=== PATIENT | female | born 1970 | race Caucasian/White ===

== ENCOUNTER 2019-04-27 19:18 | Emergency (ER) | payer OTHER ==
--- NOTE | 2019-04-27 19:20 | ERPHSYRPT ---
- History of Present Illness Time Seen by Provider: 04/27/19 19:20 Historian: patient, family Exam Limitations: no limitations Physician History: 49 y/o white female presents with recurrent prolapsed uterus. pt states her uterus prolapses after each urination and defecation. usually spontaneously reduces. pt states this evening unable to reduce and there is some discomfort. pt does not have a telegraph office manager. denies abd pain. Timing/Duration: today Activities at Onset: none Quality: cramping (mild) Pain Radiation: no radiation Severity of Pain-Max: mild Severity of Pain-Current: mild Modifying Factors: Improves With: nothing Associated Symptoms: denies symptoms Previous symptoms: same symptoms as today Allergies/Adverse Reactions: No Known Drug Allergies Allergy (Verified 04/27/19 19:45) Home Medications: Paroxetine HCl [Paxil] 20 mg PO DAILY 02/25/14 [History] Clonazepam 0.5 mg [Klonopin 0.5 MG] 0.5 mg PO BID PRN 04/27/19 [History] Hx Tetanus, Diphtheria Vaccination/Date Given: Yes Hx Influenza Vaccination/Date Given: No Hx Pneumococcal Vaccination/Date Given: No - Review of Systems Constitutional: No Symptoms Eyes: No Symptoms Ears, Nose, & Throat: No Symptoms Respiratory: No Symptoms Cardiac: No Symptoms Abdominal/Gastrointestinal: No Symptoms Genitourinary Symptoms: Other (uterine prolapse) Musculoskeletal: No Symptoms Skin: No Symptoms Neurological: No Symptoms Psychological: No Symptoms Endocrine: No Symptoms Hematologic/Lymphatic: No Symptoms Immunological/Allergic: No Symptoms All Other Systems: Reviewed and Negative - Past Medical History Pertinent Past Medical History: Yes Neurological History: No Pertinent History ENT History: No Pertinent History Cardiac History: No Pertinent History Respiratory History: No Pertinent History Endocrine Medical History: No Pertinent History Musculoskeletal History: No Pertinent History GI Medical History: Hemorrhoids History: No Pertinent History Psycho-Social History: Depression Female Reproductive Disorders: No Pertinent History - Past Surgical History Past Surgical History: Yes Neuro Surgical History: No Pertinent History Cardiac: No Pertinent History Respiratory: No Pertinent History Gastrointestinal: No Pertinent History, Other Genitourinary: Kidney Surgery Musculoskeletal: Orthopedic Surgery Female Surgical History: Tubal Ligation Other Surgical History: right ankle pinning. HEMMORHOID REMOVAL FEBRUARY THIS YEAR. RIGHT KIDNEY REMOVAL IN 1996 - Social History Smoking Status: Never smoker Exposure to second hand smoke: Yes Drug Use: none Patient Lives Alone: No - Nursing Vital Signs Nursing Vital Signs: Initial Vital Signs Temperature 98.1 F 04/27/19 19:30 Pulse Rate 86 04/27/19 19:30 Respiratory Rate 18 04/27/19 19:30 Blood Pressure 148/101 04/27/19 19:30 O2 Sat by Pulse Oximetry 99 04/27/19 19:30 Pain Scale Pain Intensity 10 - Physical Exam General Appearance: mild distress, alert, anxiety Eye Exam: PERRL/EOMI, post op pupil defect (L) Ears, Nose, Throat Exam: normal ENT inspection, moist mucous membranes Neck Exam: normal inspection, non-tender, supple, full range of motion Respiratory Exam: normal breath sounds, lungs clear, airway intact, No chest tenderness, No respiratory distress Cardiovascular Exam: regular rate/rhythm, normal heart sounds, normal peripheral pulses Gastrointestinal/Abdomen Exam: soft, normal bowel sounds, No tenderness Pelvic Exam: other (uterine prolapse. no bleeding) Rectal Exam: not done Back Exam: normal inspection, normal range of motion, No CVA tenderness, No vertebral tenderness Extremity Exam: normal inspection, normal range of motion, pelvis stable Neurologic Exam: alert, oriented x 3, cooperative, surveillance specialist II-XII nml as tested Skin Exam: normal color, warm Lymphatic Exam: No adenopathy SpO2 Interpretation: normal O2 Delivery: Room Air - Course Nursing assessment & vital signs reviewed: Yes Ordered Tests: Active Orders 24 hr Category Date Time Status IV Insertion STAT Care 04/27/19 19:39 Active AMYLASE Stat Lab 04/27/19 19:30 Completed CBC W DIFF Stat Lab 04/27/19 19:30 Completed CMP Stat Lab 04/27/19 19:30 Completed LIPASE Stat Lab 04/27/19 19:30 Completed Lactic Acid Stat Lab 04/27/19 20:09 Completed Medication Summary Discontinued Medications Generic Name Dose Route Start Last Admin Trade Name Freq PRN Reason Stop Dose Admin Hydromorphone HCl 1 mg 04/27/19 20:09 04/27/19 20:34 Hydromorphone 1 Mg/Ml Ampule IV 04/27/19 20:10 1 mg STAT ONE Administration Hydromorphone HCl Confirm 04/27/19 20:15 Hydromorphone 1 Mg/Ml Ampule Administered 04/27/19 20:16 Dose 1 mg .ROUTE .STK-MED ONE Sodium Chloride 1,000 mls @ 999 mls/hr 04/27/19 20:09 04/27/19 20:33 Sodium Chloride 0.9% 1000 Ml IV 04/27/19 21:09 999 mls/hr .Q1H1M STA Administration Sodium Chloride Confirm 04/27/19 20:16 Sodium Chloride 0.9% 1000 Ml Administered 04/27/19 20:17 Dose 1,000 mls @ ud .ROUTE .STK-MED ONE Ondansetron HCl 4 mg 04/27/19 20:09 04/27/19 20:34 Zofran 4 Mg/2 Ml Vial IV 04/27/19 20:10 4 mg STAT ONE Administration Ondansetron HCl Confirm 04/27/19 20:15 Zofran 4 Mg/2 Ml Vial Administered 04/27/19 20:16 Dose 4 mg .ROUTE .STK-MED ONE Lab/Rad Data: Laboratory Result Diagrams 04/27/19 19:30 04/27/19 19:30 Laboratory Results 04/27/19 04/27/19 04/27/19 Range/Units 20:09 19:30 19:30 WBC 7.8 (4.0-10.5) K/mm3 RBC 4.30 (4.1-5.4) M/mm3 Hgb 13.4 (12.0-16.0) gm/dl Hct 41.2 (35-47) % MCV 95.8 (78-100) fl MCH 31.2 (26-32) pg MCHC 32.5 (32-36) g/dl RDW 13.5 (11.5-14.0) % Plt Count 186 (150-450) K/mm3 MPV 11.0 H (6-9.5) fl Gran % 48.2 (36.0-66.0) % Eos # (Auto) 0.16 (0-0.5) Absolute Lymphs (auto) 3.20 (1.0-4.6) Absolute Monos (auto) 0.65 (0.0-1.3) Lymphocytes % 41.0 (24.0-44.0) % Monocytes % 8.3 (0.0-12.0) % Eosinophils % 2.0 (0.00-5.0) % Basophils % 0.5 (0.0-0.4) % Absolute Granulocytes 3.76 (1.4-6.9) Basophils # 0.04 (0-0.4) Sodium 137 (137-145) mmol/L Potassium 3.6 (3.5-5.1) mmol/L Chloride 105 (98-107) mmol/L Carbon Dioxide 28 (22-30) mmol/L Anion Gap 8.5 (5-15) MEQ/L BUN 12 (7-17) mg/dL Creatinine 0.90 (0.52-1.04) mg/dL Estimated GFR > 60.0 ML/MIN Glucose 96 (74-106) mg/dL Lactic Acid 1.2 (0.4-2.0) Calcium 9.4 (8.4-10.2) mg/dL Total Bilirubin 0.70 (0.2-1.3) mg/dL AST 29 (14-36) U/L ALT 11 (0-35) U/L Alkaline Phosphatase 63 (38-126) U/L Serum Total Protein 7.2 (6.3-8.2) g/dL Albumin 4.0 (3.5-5.0) g/dL Amylase 94 (30-110) U/L Lipase 183 (23-300) U/L - Progress Progress: improved Progress Note: 04/27/19 21:20 i contacted our hospital telegraph office manager dr. trotter. he states no need for ct abd/ pelvis and may just reduce the prolapse. if pt with sig pain, may need ct. pt had been in a trendelenburg position and given iv dilaudid and zofran. upon return to pt 30 to 40 minutes later, uterine prolapse, spontaneously and completely reduced. pt denies pain of any kind. pt is to call his office on saturday05/04/19. Discussed with : Tristin Counseled pt/family regarding: diagnosis, need for follow-up, rad results - Departure Departure Disposition: Home Clinical Impression: Uterine prolapse Condition: Stable Critical Care Time: No Referrals: MIRTHA GAGE NP [Primary Care Provider] - BERNABE TROTTER DO [ACTIVE STAFF] - Additional Instructions: call dr. Trotter office at [phone] on Saturday05/04/19 to arrange appointment. bedrest as much as possible over next 7 day. return to ED of unable to reduce prolapse on your own.
[2019-04-27] MEDS ORDERED: Sodium Chloride 0.9% 1000 ML 1,000 ML IV STA (20:09)
[2019-04-27] MEDS ORDERED: Hydromorphone 1 mg/ml Ampule IV ONE (20:09)
[2019-04-27] MEDS ORDERED: Zofran 4 MG/2 ML VIAL IV ONE (20:09)
[2019-04-27] MEDS ORDERED: Zofran 4 MG/2 ML VIAL ONE (20:15)
[2019-04-27] MEDS ORDERED: Hydromorphone 1 mg/ml Ampule ONE (20:15)
[2019-04-27] MEDS ORDERED: Sodium Chloride 0.9% 1000 ML 1,000 ML ONE (20:16)
[2019-04-27 20:26] LABS: Absolute Neutrophil Ct (ANC) 3.76 (1.4-6.9); BASOPHIL % 0.5 % (0.0-0.4); Basophil (Absolute #) 0.04 (0-0.4); Eosinophil (Absolute #) 0.16 (0-0.5); Hematocrit 41.2 % (35-47); Hemoglobin 13.4 gm/dl (12.0-16.0); Mean Cell Volume 95.8 fl (78-100); Mean Corpuscular Hemoglobin 31.2 pg (26-32); Mean Corpuscular Hgb Concent. 32.5 g/dl (32-36); Monocyte (Absolute #) 0.65 (0.0-1.3); Monocytes % 8.3 % (0.0-12.0); Neutrophil % 48.2 % (36.0-66.0); Platelet Count 186 K/mm3 (150-450); Red Cell Distribution Width 13.5 % (11.5-14.0); White Blood Count 7.8 K/mm3 (4.0-10.5)
[2019-04-27 20:45] LABS: ALKALINE PHOSPHATASE 63 U/L (38-126); AMYLASE 94 U/L (30-110); ANION GAP 8.5 MEQ/L (5-15); BLOOD UREA NITROGEN 12 mg/dL (7-17); CHLORIDE 105 mmol/L (98-107); Calcium 9.4 mg/dL (8.4-10.2); Carbon Dioxide 28 mmol/L (22-30); Glucose 96 mg/dL (74-106); LIPASE 183 U/L (23-300); Potassium 3.6 mmol/L (3.5-5.1); SGOT/AST 29 U/L (14-36); SGPT/ALT 11 U/L (0-35); SODIUM 137 mmol/L (137-145); Total Protein 7.2 g/dL (6.3-8.2)
[2019-04-27 21:33] VITALS: BP 127/92; PULSE 68; O2SAT 97
== END 2019-04-27 21:40 | disposition home or self-care (01) ==
LOC: ED 19:18
DX: N81.4 Uterovaginal prolapse, unspecified (principal)
CPT/HCPCS: 36000; 36415; 80053; 82150; 83605; 83690; 85025; 96374; 96375; 99284; J1170; J2405

== ENCOUNTER 2019-06-02 07:55 | Inpatient (IN) | payer OTHER ==
[~2019-06-02 07:55] MED LIST: Lactated Ringers 1,000 ML IV ONE
[2019-06-02] MEDS ORDERED: Lactated Ringers 1,000 ML IV ONE ×3 (08:35→13:00)
[2019-06-02] MEDS ORDERED: KEFZOL 1 GM/50 ML PREMIX** 1 GM/50 ML IVPB IV ONE (08:35)
[2019-06-02] MEDS ORDERED: KEFZOL 1 GM/50 ML PREMIX** 1 GM/50 ML IVPB IV SCH ×2 (08:45→19:00)
[2019-06-02] MEDS ORDERED: Lactated Ringers 1,000 ML IV SCH (09:00)
[2019-06-02 09:09] LABS: ALBUMIN 3.9 g/dL (3.5-5.0); ALKALINE PHOSPHATASE 68 U/L (38-126); ANION GAP 10.1 MEQ/L (5-15); BLOOD UREA NITROGEN 21 mg/dL (7-17); CHLORIDE 109 mmol/L (98-107); Calcium 9.2 mg/dL (8.4-10.2); Carbon Dioxide 28 mmol/L (22-30); Creatinine 1 0.71 mg/dL (0.52-1.04); Glucose 100 mg/dL (74-106); Potassium 3.7 mmol/L (3.5-5.1); SGOT/AST 22 U/L (14-36); SGPT/ALT 11 U/L (0-35); SODIUM 143 mmol/L (137-145)
[2019-06-02] MEDS ORDERED: PITRESSIN 20 UNITS*** 20 UNIT in Sodium Chloride 0.9% 100 ML IVPB 100 ML IV SCH (09:30)
[2019-06-02 09:31] LABS: ABO TYPING O
[2019-06-02 09:32] LABS: Antibody Screen NEGATIVE (NEGATIVE); RH TYPING POSITIVE
[2019-06-02] MEDS ORDERED: Zemuron 100 MG/10 ML ONE (10:41)
[2019-06-02] MEDS ORDERED: SUBLIMAZE 100 MCG/2 ML ONE (10:41)
[2019-06-02] MEDS ORDERED: Quelicin Fliptop 200 MG/10 ML ONE (10:41)
[2019-06-02] MEDS ORDERED: DIPRIVAN 200 MG/20 ML IV ONE (10:41)
[2019-06-02] MEDS ORDERED: Zofran 4 MG/2 ML VIAL ONE (11:58)
[2019-06-02] MEDS ORDERED: Decadron 4 MG INJ ONE (11:58)
[2019-06-02] MEDS ORDERED: TORAdol 30 mg Injection ONE ×2 (11:58→13:04)
[2019-06-02] MEDS ORDERED: BRIDION 200MG/2ML IV ONE (12:38)
[2019-06-02] MEDS ORDERED: DILAUDID 2 MG INJECTION ONE (12:55)
[2019-06-02] MEDS ORDERED: Phenergan 25 MG INJ ONE (13:08)
[2019-06-02] MEDS ORDERED: Oxy-IR 5 MG PO PRN (14:14)
[2019-06-02 14:48] LABS: Appearance CLEAR (CLEAR); Bilirubin NEGATIVE (NEGATIVE); Blood NEGATIVE Ery/ul (0-5); Glucose NEGATIVE (NEGATIVE); Ketones NEGATIVE (NEGATIVE); Leukocyte Esterase NEGATIVE (NEGATIVE); Nitrite NEGATIVE (NEGATIVE); Protein,Urine Dip NEGATIVE (Negative); Specific Gravity 1.014 (1.005-1.025); Urobilinogen NEGATIVE mg/dL (0-1); WBC 0-2 /HPF (0-5)
[2019-06-02] MEDS ORDERED: Klonopin 0.5 MG PO PRN (15:00)
[2019-06-02] MEDS: TYLENOL EXTRA STRENGTH 500 MG PO SCH ×2 (15:29→20:36)
[2019-06-02] MEDS: TORAdol 30 mg Injection IV SCH (17:19)
[2019-06-02] MEDS: Zofran 4 MG/2 ML VIAL IV SCH (17:19)
[2019-06-02] MEDS: Lactated Ringers 1,000 ML IV SCH (17:21)
[2019-06-02] MEDS: Oxy-IR 5 MG PO PRN (18:11)
[2019-06-02 18:37] LABS: Hematocrit 38.5 % (35-47); Hemoglobin 12.7 gm/dl (12.0-16.0); Mean Corpuscular Hemoglobin 32.3 pg (26-32); Mean Platelet Volume 9.8 fl (7.5-11.0); Platelet Count 199 K/mm3 (150-450); Red Blood Count 3.93 M/mm3 (4.1-5.4); Red Cell Distribution Width 13.8 % (11.5-14.0); White Blood Count 11.7 K/mm3 (4.0-10.5)
[2019-06-02] MEDS ORDERED: Paxil 20 MG ONE (19:02)
[2019-06-02] MEDS: Paxil 20 MG PO SCH (19:03)
[2019-06-02] MEDS ORDERED: SENOKOT 8.6 MG PO SCH (20:00)
[2019-06-02] MEDS: DILAUDID 2 MG INJECTION IV PRN ×2 (20:32→20:56)
[2019-06-02] MEDS: Colace 100 MG PO SCH (22:11)
[2019-06-03] MEDS: TORAdol 30 mg Injection IV SCH ×2 (00:12→05:09)
[2019-06-03] MEDS: Zofran 4 MG/2 ML VIAL IV SCH ×2 (00:12→05:09)
[2019-06-03] MEDS: Lactated Ringers 1,000 ML IV SCH (00:13)
[2019-06-03] MEDS: Oxy-IR 5 MG PO PRN ×2 (00:30→05:28)
[2019-06-03] MEDS: TYLENOL EXTRA STRENGTH 500 MG PO SCH ×2 (02:54→10:02)
[2019-06-03 04:14] VITALS: PULSE 73
[2019-06-03 05:06] LABS: Hematocrit 34.8 % (35-47); Hemoglobin 11.4 gm/dl (12.0-16.0); Mean Cell Volume 99.1 fl (78-100); Mean Corpuscular Hemoglobin 32.5 pg (26-32); Mean Corpuscular Hgb Concent. 32.8 g/dl (32-36); Platelet Count 211 K/mm3 (150-450); Red Blood Count 3.51 M/mm3 (4.1-5.4); White Blood Count 10.2 K/mm3 (4.0-10.5)
[2019-06-03 05:22] LABS: ALKALINE PHOSPHATASE 58 U/L (38-126); ANION GAP 4.7 MEQ/L (5-15); BLOOD UREA NITROGEN 15 mg/dL (7-17); CHLORIDE 107 mmol/L (98-107); Calcium 8.3 mg/dL (8.4-10.2); Carbon Dioxide 31 mmol/L (22-30); Creatinine 1 0.79 mg/dL (0.52-1.04); Glucose 97 mg/dL (74-106); Potassium 3.9 mmol/L (3.5-5.1); SGOT/AST 20 U/L (14-36); SGPT/ALT 10 U/L (0-35); SODIUM 139 mmol/L (137-145); Total Protein 5.5 g/dL (6.3-8.2)
[2019-06-03 07:24] VITALS: BP 109/63; O2SAT 91
--- NOTE | 2019-06-03 08:09 | PCM.DS ---
Discharge Summary Date of Admission: 06/02/19 07:55 Date of Discharge: 06/03/19 Admitting Physician: BERNABE RAMIREZ DO Consults: PT ADMITTED YESTERDAY SP UNDERGOING VAGINAL HYSTERECTOMY WITH ANTERIOR REPAIR FOR SYMPTOMATIC UTERINE PROLAPSE AND CYSTOCELE. PT DURING POSTOP PERIOD DID VERY WELL ABLE TO AMBULATE AND TOLERATE DIET WITH ADEQUATE URINE OUTPUT. PT AT THIS TIME STABLE FOR DISCHARGE AND WAS GIVEN PERCOCET AND IBUPROFEN FOR PAIN MANAGEMENT. PT INSTRUCTED TO FU IN OFFICE IN 2 WKS. Primary Care Provider: MIRTHA GAGE Allergies Allergies No Known Drug Allergies Allergy (Verified 06/02/19 08:50) Hospital Summary - Vitals & Intake/Output Vital Signs: Vital Signs Temperature 98.5 F 06/03/19 07:23 Pulse Rate 73 06/03/19 07:23 Respiratory Rate 16 06/03/19 07:23 Blood Pressure 109/63 06/03/19 07:23 O2 Sat by Pulse Oximetry 91 L 06/03/19 07:23 Intake & Output: Intake & Output 05/31/19 06/01/19 06/02/19 06/03/19 11:59 11:59 11:59 11:59 Intake Total 2428 Output Total 1400 Balance 1028 Weight 59.9 kg 59.9 kg - Lab Result Diagrams: 06/03/19 04:48 06/03/19 04:48 Lab Results-Last 24 Hrs: Lab Results-Last 24 Hours 06/02/19 06/02/19 06/02/19 Range/Units 08:50 08:50 08:50 WBC (4.0-10.5) K/mm3 RBC (4.1-5.4) M/mm3 Hgb (12.0-16.0) gm/dl Hct (35-47) % MCV (78-100) fl MCH (26-32) pg MCHC (32-36) g/dl RDW (11.5-14.0) % Plt Count (150-450) K/mm3 MPV (7.5-11.0) fl Sodium 143 (137-145) mmol/L Potassium 3.7 (3.5-5.1) mmol/L Chloride 109 H (98-107) mmol/L Carbon Dioxide 28 (22-30) mmol/L Anion Gap 10.1 (5-15) MEQ/L BUN 21 H (7-17) mg/dL Creatinine 0.71 (0.52-1.04) mg/dL Estimated GFR > 60.0 ML/MIN Glucose 100 (74-106) mg/dL Calcium 9.2 (8.4-10.2) mg/dL Total Bilirubin 0.90 (0.2-1.3) mg/dL AST 22 (14-36) U/L ALT 11 (0-35) U/L Alkaline Phosphatase 68 (38-126) U/L Serum Total Protein 7.0 (6.3-8.2) g/dL Albumin 3.9 (3.5-5.0) g/dL Urine Color (YELLOW) Urine Appearance (CLEAR) Urine pH (5-6) Ur Specific [place] (1.005-1.025) Urine Protein (Negative) Urine Ketones (NEGATIVE) Urine Blood (0-5) Paras/ul Urine Nitrite (NEGATIVE) Urine Bilirubin (NEGATIVE) Urine Urobilinogen (0-1) mg/dL Ur Leukocyte Esterase (NEGATIVE) Urine WBC (Auto) (0-5) /HPF Urine RBC (Auto) (0-2) /HPF U Epithel Cells (Auto) (FEW) /HPF Urine Bacteria (Auto) (NEGATIVE) /HPF Urine Glucose (NEGATIVE) mg/dL Urine HCG, Qual NEGATIVE (Negative) ABO Group O Rh Factor POSITIVE Antibody Screen NEGATIVE (NEGATIVE) 06/02/19 06/02/19 06/03/19 Range/Units 11:21 18:34 04:48 WBC 11.7 H 10.2 (4.0-10.5) K/mm3 RBC 3.93 L 3.51 L (4.1-5.4) M/mm3 Hgb 12.7 11.4 L (12.0-16.0) gm/dl Hct 38.5 34.8 L (35-47) % MCV 98.0 99.1 (78-100) fl MCH 32.3 H 32.5 H (26-32) pg MCHC 33.0 32.8 (32-36) g/dl RDW 13.8 14.0 (11.5-14.0) % Plt Count 199 211 (150-450) K/mm3 MPV 9.8 10.0 (7.5-11.0) fl Sodium (137-145) mmol/L Potassium (3.5-5.1) mmol/L Chloride (98-107) mmol/L Carbon Dioxide (22-30) mmol/L Anion Gap (5-15) MEQ/L BUN (7-17) mg/dL Creatinine (0.52-1.04) mg/dL Estimated GFR ML/MIN Glucose (74-106) mg/dL Calcium (8.4-10.2) mg/dL Total Bilirubin (0.2-1.3) mg/dL AST (14-36) U/L ALT (0-35) U/L Alkaline Phosphatase (38-126) U/L Serum Total Protein (6.3-8.2) g/dL Albumin (3.5-5.0) g/dL Urine Color YELLOW (YELLOW) Urine Appearance CLEAR (CLEAR) Urine pH 7.0 (5-6) Ur Specific [place] 1.014 (1.005-1.025) Urine Protein NEGATIVE (Negative) Urine Ketones NEGATIVE (NEGATIVE) Urine Blood NEGATIVE (0-5) Paras/ul Urine Nitrite NEGATIVE (NEGATIVE) Urine Bilirubin NEGATIVE (NEGATIVE) Urine Urobilinogen NEGATIVE (0-1) mg/dL Ur Leukocyte Esterase NEGATIVE (NEGATIVE) Urine WBC (Auto) 0-2 (0-5) /HPF Urine RBC (Auto) 6-10 (0-2) /HPF U Epithel Cells (Auto) NONE (FEW) /HPF Urine Bacteria (Auto) NONE (NEGATIVE) /HPF Urine Glucose NEGATIVE (NEGATIVE) mg/dL Urine HCG, Qual (Negative) ABO Group Rh Factor Antibody Screen (NEGATIVE) 06/03/19 Range/Units 04:48 WBC (4.0-10.5) K/mm3 RBC (4.1-5.4) M/mm3 Hgb (12.0-16.0) gm/dl Hct (35-47) % MCV (78-100) fl MCH (26-32) pg MCHC (32-36) g/dl RDW (11.5-14.0) % Plt Count (150-450) K/mm3 MPV (7.5-11.0) fl Sodium 139 (137-145) mmol/L Potassium 3.9 (3.5-5.1) mmol/L Chloride 107 (98-107) mmol/L Carbon Dioxide 31 H (22-30) mmol/L Anion Gap 4.7 L (5-15) MEQ/L BUN 15 (7-17) mg/dL Creatinine 0.79 (0.52-1.04) mg/dL Estimated GFR > 60.0 ML/MIN Glucose 97 (74-106) mg/dL Calcium 8.3 L (8.4-10.2) mg/dL Total Bilirubin 0.60 (0.2-1.3) mg/dL AST 20 (14-36) U/L ALT 10 (0-35) U/L Alkaline Phosphatase 58 (38-126) U/L Serum Total Protein 5.5 L (6.3-8.2) g/dL Albumin 3.0 L (3.5-5.0) g/dL Urine Color (YELLOW) Urine Appearance (CLEAR) Urine pH (5-6) Ur Specific [place] (1.005-1.025) Urine Protein (Negative) Urine Ketones (NEGATIVE) Urine Blood (0-5) Paras/ul Urine Nitrite (NEGATIVE) Urine Bilirubin (NEGATIVE) Urine Urobilinogen (0-1) mg/dL Ur Leukocyte Esterase (NEGATIVE) Urine WBC (Auto) (0-5) /HPF Urine RBC (Auto) (0-2) /HPF U Epithel Cells (Auto) (FEW) /HPF Urine Bacteria (Auto) (NEGATIVE) /HPF Urine Glucose (NEGATIVE) mg/dL Urine HCG, Qual (Negative) ABO Group Rh Factor Antibody Screen (NEGATIVE) - Discharge Disposition: Home, Self-Care Condition: Stable Prescriptions: No Action Paroxetine HCl [Paxil] 20 mg PO DAILY Clonazepam 0.5 mg [Klonopin 0.5 MG] 0.5 mg PO BID PRN Follow up with: MIRTHA GAGE NP [Primary Care Provider] - 1 Week BERNABE RAMIREZ DO [ACTIVE STAFF] - 1 Week
--- NOTE | 2019-06-03 08:12 | PCM.DCORD ---
- Discharge Prescriptions: No Action Paroxetine HCl [Paxil] 20 mg PO DAILY Clonazepam 0.5 mg [Klonopin 0.5 MG] 0.5 mg PO BID PRN Additional Instructions: NOTHING PER VAGINA FOR 6 WKS NO HEAVY LIFTING NO DRIVING FOR 1 WK MAY SHOWER BUT NO BATH FOR 2 WKS NO VAGINAL INTERCOURSE FOR 6 WKS Follow up with: MIRTHA GAGE NP [Primary Care Provider] - 1 Week
[2019-06-03] MEDS: Colace 100 MG PO SCH (10:02)
[2019-06-03] MEDS: Paxil 20 MG PO SCH (10:03)
--- NOTE | 2019-06-03 12:00 | OP ---
SURGERY DATE/TIME: 06/02/2019 1112 PREOPERATIVE DIAGNOSIS: Symptomatic uterine prolapse and cystocele. POSTOPERATIVE DIAGNOSIS: Symptomatic uterine prolapse and cystocele. PROCEDURE: Vaginal hysterectomy with anterior colporrhaphy. SURGEON: Edison Trotter D.O. CERTIFIED SURGICAL TECH/FIRST ASSISTANT: technical sales consultant. ANESTHESIA: General. ESTIMATED BLOOD LOSS: 100 cc. COMPLICATIONS: None. INDICATIONS: The risks, benefits, indications and alternatives of the procedure were reviewed with the patient prior to procedure. The patient understood the risk of infection, bleeding, bowel injury, bladder injury, ureteral injury, uterine perforation, pelvic infection, thromboembolic disorder associated with the surgery as well as future enterocele and possible prolapse of the vagina that can be associated with this surgery however desires to have this surgery as a possible need to alleviate her current medical condition. The patient also understands the risk of possible hot flashes that may occur as well as all types of incontinence that may occur after the procedure is done. From this point the patient understands all risks and desires to have this procedure as a possible need to alleviate her current medical condition. DESCRIPTION OF PROCEDURE AND FINDINGS: At this point a weighted speculum is then placed into the vagina and the cervix grasped with Raymond clamps. The cervix is then injected circumferentially with dilute 20 units of vasopressin and 100 cc of normal saline circumferentially. The cervix was then circumferentially incised with the scalpel and the bladder dissected off the pubovesical cervical fascia anteriorly with a sponge stick and Metzenbaum scissors. The anterior cul-de-sac was then entered sharply. The same procedure was performed posteriorly and the posterior cul-de-sac was entered sharply without difficulty. At this point Trang clamps were placed on the uterosacral ligaments on either side. They were then transected and suture ligated with 0 Vicryl suture. Hemostasis was assured. The cornual ligaments were then clamped on both sides, transected and suture ligated in similar fashion. The uterine artery and the broad ligaments were then clamped with Trang clamp, suture ligated on both sides. Excellent hemostasis was visualized. Prior to using the Trang clamps, LigaSure was used for the vascular region. From this point both cornua were clamped with Trang clamp, transected with suture and the uterus delivered. The pedicles were then suture ligated with excellent hemostasis. From this point the peritoneum was closed with a purse string suture of 0 Vicryl. The vaginal cuff angles were closed with figure-of-8 stitches of 0 Vicryl on both sides and transected the lateral Cardinal and uterosacral ligaments. The vaginal cuff was closed with figure-of-8 stitches of 0 Vicryl in interrupted fashion. From this point the anterior vaginal region was injected at the completion of the hysterectomy with approximately 20 cc of diluted vasopressin with 100 cc normal saline and approximately 20 cc was injected into the anterior vaginal region just distal to the urethra. After injection there was approximately 7 cm midline incision just 1 cm distal to the urethra to the vaginal apex with a vertical incision of approximately 7 to 8 cm where Allis clamps were placed on either side of the incision and the bladder was then dissected off the anterior vaginal wall on both sides. Sharp dissection continued laterally on either side towards the inferior pubic ramus region and at this point triplication was placed in the bladder neck with 2-0 Vicryl suture and continue plication from the vaginal mucosa on either side, continued plication towards the apex in the vaginal region was obtained. After complete plication the excess vaginal mucosa was excised without complication. At this point the edges of the anterior vaginal wall was brought to the midline and was closed in a continuous stitch of 2-0 Vicryl suture and was done so without complications. Hemostasis obtained. From this point Iodoform gauze was then placed into the vaginal region at the completion of the procedure. From this point all instruments were accounted for x2. The patient was then taken out of the dorsal lithotomy position and was taken out of anesthesia and was then taken to the recovery room in stable condition.
== END 2019-06-03 11:00 | disposition home or self-care (01) | DRG 743 ==
LOC: OBSVTOIN 07:55 → MED SURG 07:55 → EDSTATUS 12:38
PROVIDERS: ADMIT Obstetrics & Gynecology; ATTEND Obstetrics & Gynecology
PROC: 0UT97ZZ Resection of Uterus, Via Natural or Artificial Opening (ICD-10-PCS; principal; 2019-06-02)
PROC: 0JQC3ZZ Repair Pelvic Region Subcutaneous Tissue and Fascia, Percutaneous Approach (ICD-10-PCS; 2019-06-02)
DX: N81.4 Uterovaginal prolapse, unspecified (principal); N80.0 Endometriosis of uterus; N72 Inflammatory disease of cervix uteri
CPT/HCPCS: 36415; 57240; 58260; 80053; 81001; 84703; 85027; 86850; 86900; 86901; 87086; J0330; J0690; J1100; J1170; J1885; J2405; J2550; J2704; J3010; A9270-GY